=== PATIENT | female | born 1985 | race Caucasian/White ===

== ENCOUNTER 2024-08-20 12:06 | Emergency (ER) | payer BC, SELFPAY ==
--- NOTE | ~2024-08-20 | US_ITS ---
EXAMINATION: US PELVIS CLINICAL INFORMATION: Pain/bleeding COMPARISON: None available. TECHNIQUE: Ultrasound of the pelvis is performed using both transabdominal and transvaginal transducers along with Doppler. Transvaginal imaging is performed due to inadequate visualization transabdominally. FINDINGS: Uterus: The uterus is anteverted and measures 9.0 x 4.6 x 5.6 cm. The double wall endometrial thickness is 11 mm. The uterus is smooth in contour and has normal myometrial echogenicity. No visible fibroid. There are nabothian cysts present. Adnexa: Both ovaries are visualized. There is normal color flow to the adnexa. There is no ovarian torsion. There is no pelvic ascites or fluid collection. Right ovary measures 3.0 x 2.4 x 1.9 cm. There are small coarse calcifications in the right ovary. Left ovary measures 2.9 x 3.2 x 2.2 cm. US/US pelvic and transvaginal IMPRESSION: Unremarkable pelvic ultrasound. Electronically signed by: Josias Beltran MD 08/20/2024 02:54 PM EDT
--- NOTE | ~2024-08-20 | US_ITS ---
EXAMINATION: US PELVIS CLINICAL INFORMATION: Pain/bleeding COMPARISON: None available. TECHNIQUE: Ultrasound of the pelvis is performed using both transabdominal and transvaginal transducers along with Doppler. Transvaginal imaging is performed due to inadequate visualization transabdominally. FINDINGS: Uterus: The uterus is anteverted and measures 9.0 x 4.6 x 5.6 cm. The double wall endometrial thickness is 11 mm. The uterus is smooth in contour and has normal myometrial echogenicity. No visible fibroid. There are nabothian cysts present. Adnexa: Both ovaries are visualized. There is normal color flow to the adnexa. There is no ovarian torsion. There is no pelvic ascites or fluid collection. Right ovary measures 3.0 x 2.4 x 1.9 cm. There are small coarse calcifications in the right ovary. Left ovary measures 2.9 x 3.2 x 2.2 cm. US/US pelvic ovarian doppler IMPRESSION: Unremarkable pelvic ultrasound. Electronically signed by: Josias Beltran MD 08/20/2024 02:54 PM EDT
[2024-08-20 12:41] VITALS: BP 123/74; PULSE 85; RESP 16; TEMP 36.8; O2SAT 98; BMI 29.5
--- NOTE | 2024-08-20 12:48 | ED.FEMALEGU ---
HPI - Female Genitourinary General Chief complaint: Vaginal Bleeding Stated complaint: Abd pain Time Seen by Provider: 08/20/24 16:33 Source: patient Limitations: no limitations History of Present Illness ED Provider: Mela Monreal PA-C HPI Narrative: 39-year-old female presenting with heavy, painful vaginal bleeding x2 days. Patient has had ongoing dysfunctional uterine bleeding since the of her child 3 years ago. However over the past 2 days, her pain and bleeding have become severe. Patient states she is also passing large clots. Patient was recently on control, however she did not do well with the side-effect profile, she is currently not on any form of control. Patient has been assessed by her precision grinder external in the past, she has had a transvaginal ultrasound that revealed no fibroids. Related Data Previous Rx's ?Medication ?Instructions ?Recorded tizanidine 4 mg capsule 4 mg PO Q8H PRN pain #15 caps 08/20/24 Allergies Allergy/AdvReac Type Severity Reaction Status Date / Time Sulfa (Sulfonamide Allergy Rash Verified 08/20/24 12:46 Antibiotics) Review of Systems Review of Systems: Yes all other systems are reviewed and are negative Constitutional: Constitutional: Denies fatigue and Denies fever(s) Cardiovascular: Cardiovascular: Denies chest pain and Denies dyspnea Respiratory: Respiratory: Denies dyspnea Gastrointestinal: Gastrointestinal: Reports abdominal pain and Denies vomiting Genitourinary: Genitourinary: Reports menorrhagia and Denies vaginal discharge Endocrine: Endocrine: Denies fatigue PMFSH Past Medical History Attestation statement: The following information was validated with the patient. Social History Social History Advance Directives: No Advance Directives Information Provided: No Physical Exam Vital Signs: Vital Signs: Last Vital Signs Temp 97.9 F 08/20/24 17:03 Pulse 71 08/20/24 17:03 Resp 18 08/20/24 17:03 BP 126/83 08/20/24 17:03 Pulse Ox 100 08/20/24 17:03 O2 Del Method Room Air 08/20/24 17:03 BMI result Body Mass Index 29.5 Const: Other: Alert, very tearful and anxious Orientation/consciousness: patient oriented x3 Resp: Effort & Inspection: normal respiratory effort GI: Other: Abdomen is soft, nondistended, mild tenderness across the entire lower abdomen, without guarding : Other: Deferred for now Skin: Other: Warm dry no rash Neuro: General: patient oriented x3, no focal motor deficits and CN's II-XI intact bilaterally Psych: Other: Anxious, tearful, somewhat hostile at times Course Course Course Narrative: Rapid medical exam performed by eMla Monreal PA-C. The patient is a 39-year-old female presenting with heavy, painful vaginal bleeding x2 days. Patient has had ongoing dysfunctional uterine bleeding since the of her child 3 years ago. However over the past 2 days, her pain and bleeding have become severe. Patient states she is also passing large clots. Her abdomen is soft, without peritoneal signs, however she is tender across entire pelvic region. We will be ordering a transvaginal ultrasound, she is obtaining a urine preg, I will be watching for results, there is concern for ectopic as she does not use control at this time. In the meantime we will order screening labs and an hCG quant, if she is , type and screen with Rh factor will be obtained. The patient is stable, she will return to the weight room pending her full assessment Medications Administered Discontinued Medications Generic Name Dose Route Start Last Admin Trade Name Freq PRN Reason Stop Dose Admin Ketorolac Tromethamine 15 mg 08/20/24 15:47 08/20/24 15:58 Ketorolac Tromethamine 15 Mg/Ml Vial IM 08/20/24 15:48 15 mg ONCE ONE Administration Medical Decision Making Medical Decision Making [facility] Narrative: 39-year-old female presenting with heavy, painful vaginal bleeding x2 days. Patient has had ongoing dysfunctional uterine bleeding since the of her child 3 years ago. However over the past 2 days, her pain and bleeding have become severe. Patient states she is also passing large clots. Patient was recently on control, however she did not do well with the side-effect profile, she is currently not on any form of control. Patient has been assessed by her precision grinder external in the past, she has had a transvaginal ultrasound that revealed no fibroids. Problem: Known dysfunctional uterine bleeding History: Per patient I have considered the following differential diagnoses: Fibroids, endometrial cancer, dyssynchronous endometrium, ectopic Plan: Patient was started as an [employer] patient, screening labs and a transvaginal ultrasound were obtained. The patient is not , ectopic less likely at this time. No abnormality noted on the ultrasound. It appears she has dysmenorrhea, she has been unwilling to try suggested interventions. She seems extremely frustrated with the process. She has tried muscle relaxants, she is insistent that she can not take NSAIDs. I had discussion with her that perhaps she could take meloxicam which is dosed daily with Carafate, she declines. She currently has methocarbamol, which she states is ineffective. We will try tizanidine. I again have relate to her she needs to follow up with her precision grinder external, she verbalizes understanding. FINDINGS: Uterus: The uterus is anteverted and measures 9.0 x 4.6 x 5.6 cm. The double wall endometrial thickness is 11 mm. The uterus is smooth in contour and has normal myometrial echogenicity. No visible fibroid. There are nabothian cysts present. Adnexa: Both ovaries are visualized. There is normal color flow to the adnexa. There is no ovarian torsion. There is no pelvic ascites or fluid collection. Right ovary measures 3.0 x 2.4 x 1.9 cm. There are small coarse calcifications in the right ovary. Left ovary measures 2.9 x 3.2 x 2.2 cm. US/US pelvic and transvaginal IMPRESSION: Unremarkable pelvic ultrasound. Electronically signed by: Josias Beltran MD 08/20/2024 02:54 PM EDT Lab Data 08/20/24 13:00 08/20/24 13:00 Labs: Lab Results 08/20/24 Range/Units 13:00 WBC 8.9 (4.8-10.8) X10*3/uL RBC 4.34 (4.20-5.50) X10*6/uL Hgb 13.9 (12.0-16.0) g/dl Hct 40.0 (37.0-47.0) % MCV 92.2 (80.0-98.0) fL MCH 32.0 (27.0-33.0) pg MCHC 34.8 (31.0-35.0) g/dl RDW 12.8 (11.0-16.0) % Plt Count 442 H (160-400) X10*3/uL MPV 8.6 L (9.4-12.3) fL Immature Gran % (Auto) 0.2 (0.0-0.4) % Neut % (Auto) 59.0 (45-73) % Lymph % (Auto) 32.8 (20-40) % [place] % (Auto) 5.9 (2-11) % Eos % (Auto) 1.5 (0-4) % Baso % (Auto) 0.6 (0-2) % Lymph # (Auto) 2.9 (1.2-4.9) X10*3/uL [place] # (Auto) 0.5 (0.1-1.2) X10*3/uL Eos # (Auto) 0.1 (0.0-0.4) X10*3/uL Baso # (Auto) 0.1 (0.0-0.2) X10*3/uL Abs Immat Gran (auto) 0.02 (0.00-0.03) X10*3/uL Absolute Neuts (auto) 5.2 (2.0-8.3) x10*3/uL Absolute Nucleated RBC 0.000 (0.0-0.012) X10*3/uL Nucleated RBC % (auto) 0.0 (0.0-0.2) /100WBC Sodium 140 (135-145) mmol/L Potassium 3.6 (3.3-5.1) mmol/L Chloride 111 H (96-108) mmol/L Carbon Dioxide 23 (22-29) mmol/L Anion Gap 10 L (12-20) BUN 11 (9-16) mg/dL Creatinine 0.68 (0.5-1.4) mg/dL Estim Creat Clear Calc 113.3 Estimated GFR > 60 Random Glucose 95 (60-115) mg/dL Calcium 9.6 (8.4-10.2) mg/dL Magnesium 2.2 (1.6-2.6) mg/dL Total Bilirubin 0.2 (0.0-1.0) mg/dL AST 13 (5-31) U/L ALT 18 (0-31) U/L Alkaline Phosphatase 82 (39-117) U/L Total Protein 7.5 (6.5-8.0) g/dL Albumin 4.5 (3.5-5.0) g/dL Beta HCG, Quant < 2 mIU/mL Urine Test NEGATIVE (NEGATIVE) Discharge Plan Discharge Clinical Impression: Dysfunctional uterine bleeding Patient Disposition: Home, Self-Care Instructions: Dysfunctional Uterine Bleeding (ED) Additional Instructions: All of your labs were stable including your blood count. The ultrasound of your uterus did not reveal any acute abnormality, you do not have fibroids. You require additional workup as an outpatient by her precision grinder external. I will call tomorrow to make an appointment. I am prescribing tizanidine, this is a muscle relaxant, it may help alleviate your cramping associated with your periods. To note, NSAIDs are the drug of choice. Prescriptions: New tizanidine 4 mg capsule 4 mg PO Q8H PRN (Reason: pain) Qty: 15 0RF Stand Alone Forms: Work/School Release Interventions: ED Discharge Assessment Last Done: 08/20/24 17:03 Discharge Date/Time: 08/20/24 17:08 Print Language: Russian
[2024-08-20 13:05] LABS: MANUAL DIFF FLAG NO
[2024-08-20 13:06] LABS: Basophils Absolute Auto 0.1 X10*3/uL (0.0-0.2); Basophils Percent Auto 0.6 % (0-2); Eosinophils Absolute Auto 0.1 X10*3/uL (0.0-0.4); Eosinophils Percent Auto 1.5 % (0-4); Hemoglobin 13.9 g/dl (12.0-16.0); Imm Gran Abs Auto 0.02 X10*3/uL (0.00-0.03); Imm Gran Pct Auto 0.2 % (0.0-0.4); Lymphocytes Absolute Auto 2.9 X10*3/uL (1.2-4.9); Lymphocytes Percent Auto 32.8 % (20-40); Mean Corpuscular HGB Conc 34.8 g/dl (31.0-35.0); Mean Corpuscular Volume 92.2 fL (80.0-98.0); Mean Platelet Volume 8.6 fL (9.4-12.3); Monocytes Absolute Auto 0.5 X10*3/uL (0.1-1.2); Monocytes Percent Auto 5.9 % (2-11); Neutrophils Absolute Auto 5.2 x10*3/uL (2.0-8.3); Platelet Count 442 X10*3/uL (160-400); Red Blood Count 4.34 X10*6/uL (4.20-5.50); Red Cell Distribution Width 12.8 % (11.0-16.0); UPreg QC Valid YES; White Blood Count 8.9 X10*3/uL (4.8-10.8)
[2024-08-20 13:07] LABS: Urine Pregnancy NEGATIVE (NEGATIVE)
[2024-08-20 13:35] LABS: Alanine Aminotransferase 18 U/L (0-31); Albumin Level 4.5 g/dL (3.5-5.0); Alkaline Phosphatase 82 U/L (39-117); Anion Gap 10 (12-20); Aspartate Amino Transferase 13 U/L (5-31); Bilirubin Total 0.2 mg/dL (0.0-1.0); Blood Urea Nitrogen 11 mg/dL (9-16); Calcium 9.6 mg/dL (8.4-10.2); Carbon Dioxide 23 mmol/L (22-29); Chloride 111 mmol/L (96-108); Creatinine Clr Calc Pharmacy 113.3; Estimated Glomerular Filt Rate > 60; Glucose Random 95 mg/dL (60-115); Magnesium 2.2 mg/dL (1.6-2.6); Potassium 3.6 mmol/L (3.3-5.1); Sodium 140 mmol/L (135-145); Total Protein 7.5 g/dL (6.5-8.0)
[2024-08-20 13:40] LABS: HCG Quantitative < 2 mIU/mL
[2024-08-20] MEDS: Ketorolac Tromethamine 15 MG/ML VIAL IM (15:58)
[2024-08-20 17:03] VITALS: BP 126/83; PULSE 71; RESP 18; TEMP 36.6; O2SAT 100
== END 2024-08-20 17:08 | disposition home or self-care (01) ==
PROVIDERS: Physician Assistant Medical; Emergency Provider Emergency Medicine; PCP Nurse Practitioner Primary Care
DX: N93.8 Other specified abnormal uterine and vaginal bleeding (principal); R10.2 Pelvic and perineal pain; Z79.899 Other long term (current) drug therapy
CPT/HCPCS: 36415; 76830; 76856; 80053; 81025; 83735; 84702; 85025; 93975; 96372; 99283; 99284; J1885